=== PATIENT | female | born 2000 | race Two or more races ===

== ENCOUNTER 2022-02-23 12:15 | Outpatient (REF) | payer OTHER, SELFPAY ==
[2022-02-23 13:17] LABS: MANUAL DIFF FLAG NO
[2022-02-23 13:23] LABS: Basophils Percent Auto 0.4 % (0-2); Eosinophils Percent Auto 0.6 % (0-4); Hematocrit 40.5 % (37.0-47.0); Hemoglobin 13.5 g/dl (12.0-16.0); Imm Gran Abs Auto 0.03 X10*3/uL (0.00-0.03); Imm Gran Pct Auto 0.6 % (0.0-0.4); Lymphocytes Absolute Auto 1.6 X10*3/uL (1.2-4.9); Lymphocytes Percent Auto 33.3 % (20-40); Mean Corpuscular HGB Conc 33.3 g/dl (31.0-35.0); Mean Corpuscular Hemoglobin 29.2 pg (27.0-33.0); Mean Corpuscular Volume 87.7 fL (80.0-98.0); Mean Platelet Volume 10.3 fL (9.4-12.3); Monocytes Absolute Auto 0.5 X10*3/uL (0.1-1.2); Monocytes Percent Auto 11.4 % (2-11); Neutrophils Absolute Auto 2.5 x10*3/uL (2.0-8.3); Neutrophils Percent Auto 53.7 % (45-73); Platelet Count 237 X10*3/uL (160-400); Red Blood Count 4.62 X10*6/uL (4.20-5.50); Red Cell Distribution Width 12.8 % (11.0-16.0); White Blood Count 4.7 X10*3/uL (4.8-10.8)
[2022-02-23 13:52] LABS: C Reactive Protein 0.14 mg/dL (< or = 0.50)
[2022-02-23 14:12] LABS: Erythrocyte Sedimentation Rate 16 MM/HR (0-20)
[2022-02-27 13:46] LABS: Scleroderma 70 Antibody <1.0 NEG AI (<1.0 NEG)
[2022-02-27 16:26] LABS: Cyclic Citrullinated Peptide <16 UNITS
== END 2022-02-23 12:16 | disposition home or self-care (01) ==
LOC: HO.10HDL 12:15
PROVIDERS: Visit Provider Internal Medicine Rheumatology
DX: M79.641 Pain in right hand (principal); M79.642 Pain in left hand; M79.652 Pain in left thigh; I73.00 Raynaud's syndrome without gangrene
CPT/HCPCS: 36415; 85025; 85652; 86140; 86200; 86235